=== PATIENT | female | born 1960 | race African-American/Black ===

== ENCOUNTER → 2017-01-24 | Outpatient (CLI) | payer OTHER ==
[~2017-01-24] MED LIST: BACTRIM DS TABL1 TA2 PO; KEFLEX PO; LASIX PO; LORTAB 5/500 TA1 TA1 PO; LOTENSIN20 MG PO; MEDROL DOSEPAK4 MG DOB; MOBIC PO; ORUDIS75 M1 PO; ROBAXIN500 MG PO; SIMVASTATIN20 MG PO
--- NOTE | ~2017-01-24 | MY29 ---
[facility] A Service of [facility] RADIOLOGY TEXT RESULTS PATIENT: ANA HALL LOCATION: [facility] : 58 UNIT #: [id number] AGE: [address]: CONNOR GARCIA MD SEX: F ORDER DR: [id number] [facility] [address] [place], [place] [address] [id number] O MR#: [id number] Acc #: [id number] NAME: ANA HALL : 1960 SEX: F STUDY DATE/TIME: 01/24/2017 11:01 UNIT: [facility] ROOM: STUDY DESCRIPTION: MY LIS SCREENING W/ CAD BILAT Attending Physician: Connor Garcia M.D. Referring Physician: Connor Garcia M.D. Ordering Physician: Brian Garcia M.D. Primary Care Physician: Connor Garcia M.D. MEDICAL IMAGING REPORT This report is preliminary unless electronic signature is present EXAM Digital screening mammogram 01/24/2017, [facility] HISTORY 56-year-old woman, no risk elevation. History of CVA. COMPARISON Mammograms date to 03/22/2008 with most recent 04/04/2015. FINDINGS Digital imaging of each breast was completed utilizing screening protocol. Left breast images are somewhat compromised due to positioning difficulty. Review includes FDA-approved CAD device. Breast parenchyma is fatty replaced. I see no interval occurring mass. There are no suspicious microcalcifications and no architectural deformity. IMPRESSION Negative mammogram. Annual screening recommended. Patient's over the age of 40 are entered into a reminder system with target due date for the next mammogram. A result letter will be sent to the patient. BIRADS: 1 Negative Dictated by... Nicholas Berkowitz M.D. THIS IS AN ELECTRONICALLY VERIFIED REPORT Nicholas Berkowitz M.D. at 01/25/2017 8:03 AM JBB/to [facility] A Service of [facility] RADIOLOGY TEXT RESULTS PATIENT: ANA HALL LOCATION: [facility] #: [id number] : 58 UNIT #: [id number] AGE: [address]: CONNOR GARCIA MD SEX: F ORDER DR: TD: 01/24/2017 16:17 JOB #: [id number] MEDICAL IMAGING REPORT Page 1 of 1 COPY
== END | disposition home or self-care (01) ==
LOC: CWCC 10:15
DX: Z12.31 Encounter for screening mammogram for malignant neoplasm of breast (principal); Z86.73 Personal history of transient ischemic attack (TIA), and cerebral infarction without residual deficits
CPT/HCPCS: G0202